=== PATIENT | female | born 1960 | race Caucasian/White ===

== ENCOUNTER 2019-06-10 08:08 | Emergency (ER) | payer OTHER ==
[~2019-06-10] VITALS: Ht 160 cm; Wt 85.7 kg
[~2019-06-10 08:08] MED LIST: FAMO-96 PO; MAG355OR14 PO; ONDA4TAB8 PO
[2019-06-10 08:15] VITALS: Ht 160 cm; Wt 85.7 kg
[2019-06-10] MEDS ORDERED: ONDANSETRON 4 MG INJ IV STA (09:52)
[2019-06-10] MEDS ORDERED: FAMOTIDINE 20 MG TAB PO STA (09:52)
[2019-06-10] MEDS ORDERED: LIDOCAINE/MYLANTA 40 ML BTL PO STA (09:52)
[2019-06-10] MEDS ORDERED: BELLADONNA/PHENOBARBITAL TAB PO STA (09:52)
[2019-06-10] MEDS ORDERED: KETOROLAC 15 MG INJ IV STA (09:52)
[2019-06-10] MEDS ORDERED: SOD CHLORIDE 0.9% 1,000 ML IV STA (09:52)
[2019-06-10 12:00] VITALS: BP 136/81; PULSE 68; RESP 20
== END 2019-06-10 12:09 | disposition home or self-care (01) ==
LOC: E/R 08:08
DX: R10.13 Epigastric pain (principal); E66.9 Obesity, unspecified; Z68.33 Body mass index [BMI] 33.0-33.9, adult
CPT/HCPCS: 36415; 80053; 81003; 83690; 84484; 85025; 93005; 96374; 96375; J1885; J2405; J7030; Z7502; Z7610